=== PATIENT | female | born 1970 | race African-American/Black ===

== ENCOUNTER 2017-02-24 14:26 | Emergency (ER) | payer OTHER, BC ==
[~2017-02-24] VITALS: Ht 175.3 cm; Wt 71.7 kg
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
[~2017-02-24 14:26] MED LIST: AMLODIPINE BES2.5 MG PO; CEPHALEXIN500 M1 PO; LORTAB 7.5-5001 TAB PO; [UNRECOGNIZED DRUG - REMARK]
== END 2017-02-24 17:51 | disposition home or self-care (01) ==
LOC: CED 14:26 → CFTX 14:26
DX: S29.012A Strain of muscle and tendon of back wall of thorax, initial encounter (principal); S29.011A Strain of muscle and tendon of front wall of thorax, initial encounter; J98.01 Acute bronchospasm; J40 Bronchitis, not specified as acute or chronic; I10 Essential (primary) hypertension; Z91.14 Patient's other noncompliance with medication regimen; F17.210 Nicotine dependence, cigarettes, uncomplicated; Z91.040 Latex allergy status; Z88.5 Allergy status to narcotic agent; Z88.8 Allergy status to other drugs, medicaments and biological substances; V49.40XA Driver injured in collision with unspecified motor vehicles in traffic accident, initial encounter; Y93.89 Activity, other specified; Y92.410 Unspecified street and highway as the place of occurrence of the external cause
CPT/HCPCS: 71020; 72072; 99284